=== PATIENT | female | born 1955 | race Caucasian/White ===

== ENCOUNTER 2017-10-03 07:30 | Emergency (ER) | payer MEDICARE, OTHER ==
[~2017-10-03] VITALS: Ht 154.9 cm; Wt 67.4 kg
[2017-10-03] MEDS ORDERED: SODIUM CHLORIDE 0.9% 1,000ML IV ONE (08:00)
[2017-10-03] MEDS ORDERED: DIAZEPAM 5 MG TABLET PO ONE (08:00)
[2017-10-03] MEDS ORDERED: OXYcodone/APAP 5/325MG TABLET PO ONE (08:00)
[2017-10-03] MEDS ORDERED: SODIUM CHLORIDE FLUSH 10ML SYR IVF ONE (08:00)
[2017-10-03] MEDS ORDERED: DIAZEPAM 5 MG TABLET ONE (08:18)
[2017-10-03] MEDS ORDERED: OXYcodone/APAP 5/325MG TABLET ONE (08:18)
[2017-10-03] MEDS ORDERED: ONDANSETRON 2MG/ML, 2ML ONE (08:18)
[2017-10-03] MEDS ORDERED: ASPIRIN 81 MG TABLET CHEW ONE (08:19)
[2017-10-03 08:30] LABS: CULTURE INDICATED? YES; MICROSCOPIC INDICATED
[2017-10-03] MEDS ORDERED: ASPIRIN 81 MG TABLET CHEW PO ONE (08:30)
[2017-10-03] MEDS ORDERED: ONDANSETRON 2MG/ML, 2ML IVPush ONE (08:30)
[2017-10-03 08:54] LABS: BASOPHILS # (AUTO) 0.07 x10^3/uL (0-0.1); BASOPHILS % (AUTO) 1 % (0-1); EOSINOPHILS # (AUTO) 0.06 x10^3/uL (0-0.4); EOSINOPHILS % (AUTO) 0 % (1-7); LYMPHOCYTES % (AUTO) 9 % (22-44); MD NO; MEAN CORPUSCULAR HEMOGLOBIN 24.8 pg (27.0-34.8); MEAN CORPUSCULAR HGB CONC 32.4 g/dL (32.4-35.8); MEAN CORPUSCULAR VOLUME 76.5 fL (80-100); MEAN PLATELET VOLUME 7.5 fL (7.4-10.4); MONOCYTES # (AUTO) 0.96 x10^3/uL (0.2-0.8); MONOCYTES % (AUTO) 7 % (2-9); NEUTROPHILS # (AUTO) 11.05 x10^3/uL (1.8-6.8); NEUTROPHILS % (AUTO) 83 % (42-75); PLATELET COUNT 391 x10^3/uL (130-400); RED BLOOD COUNT 5.91 x10^6/uL (3.82-5.3); RED CELL DISTRIBUTION WIDTH 19.9 % (9.6-15.2)
[2017-10-03 09:05] LABS: ALANINE AMINOTRANSFERASE 20 U/L (12-78); ALBUMIN 3.8 g/dL (3.4-5.0); ANION GAP 7 mmol/L (5-15); CHLORIDE 100 mmol/L (98-107); CREATININE 0.71 mg/dL (0.55-1.02)
[2017-10-03 09:07] LABS: ALKALINE PHOSPHATASE 82 U/L (45-117); BILIRUBIN,TOTAL 0.4 mg/dL (0.2-1.0); TOTAL PROTEIN 8.5 g/dL (6.4-8.2)
[2017-10-03 09:15] LABS: TROPONIN I < 0.015 ng/mL (0.000-0.045)
[2017-10-03] MEDS ORDERED: NS + 40MEQ KCL 1,000 ML IV ONE (09:30)
[2017-10-03] MEDS ORDERED: POTASSIUM CHLORIDE 20 MEQ TAB.ER.PRT ONE (10:19)
[2017-10-03] MEDS ORDERED: POTASSIUM CHLORIDE 20 MEQ TAB.ER.PRT PO ONE (10:30)
[2017-10-03 10:36] VITALS: BP 143/77
== END 2017-10-03 10:40 | disposition left against medical advice (07) ==
LOC: ED 09:41 → UNDOADMIN 09:45 → EDIP 09:45 → ED 10:40
DX: E87.6 Hypokalemia (principal); R06.00 Dyspnea, unspecified; R11.2 Nausea with vomiting, unspecified; F13.239 Sedative, hypnotic or anxiolytic dependence with withdrawal, unspecified; I10 Essential (primary) hypertension; E11.9 Type 2 diabetes mellitus without complications
CPT/HCPCS: 36415; 71046; 72072; 80053; 81001; 83690; 84484; 85025; 87086; 93005; 96361; 96374; 99285; J2405; J7030

== ENCOUNTER 2017-10-25 05:36 | Emergency (ER) | payer MEDICARE ==
[~2017-10-25] VITALS: Ht 149.9 cm; Wt 65.0 kg
[2017-10-25 06:55] LABS: BASOPHILS % (AUTO) 1 % (0-1); EOSINOPHILS # (AUTO) 0.24 x10^3/uL (0-0.4); EOSINOPHILS % (AUTO) 2 % (1-7); LYMPHOCYTES # (AUTO) 1.88 x10^3/uL (1-3.4); LYMPHOCYTES % (AUTO) 16 % (22-44); MD NO; MEAN CORPUSCULAR HEMOGLOBIN 25.1 pg (27.0-34.8); MEAN CORPUSCULAR HGB CONC 32.7 g/dL (32.4-35.8); MEAN CORPUSCULAR VOLUME 76.8 fL (80-100); MONOCYTES # (AUTO) 1.02 x10^3/uL (0.2-0.8); MONOCYTES % (AUTO) 9 % (2-9); NEUTROPHILS # (AUTO) 8.44 x10^3/uL (1.8-6.8); NEUTROPHILS % (AUTO) 72 % (42-75); PLATELET COUNT 453 x10^3/uL (130-400); RED BLOOD COUNT 6.12 x10^6/uL (3.82-5.3); RED CELL DISTRIBUTION WIDTH 18.1 % (9.6-15.2)
[2017-10-25] MEDS ORDERED: SODIUM CHLORIDE FLUSH 10ML SYR IVF ONE (07:00)
[2017-10-25] MEDS ORDERED: DIAZEPAM 5 MG TABLET PO ONE (07:00)
[2017-10-25] MEDS ORDERED: SODIUM CHLORIDE 0.9% 1,000ML IVBOLUS ONE (07:00)
[2017-10-25] MEDS ORDERED: ONDANSETRON 2MG/ML, 2ML IVPush ONE (07:00)
[2017-10-25] MEDS ORDERED: MORPHINE SULFATE 4 MG/ML, 1ML ONE ×2 (07:03→08:04)
[2017-10-25] MEDS ORDERED: DIAZEPAM 5 MG TABLET ONE (07:03)
[2017-10-25] MEDS ORDERED: ONDANSETRON 2MG/ML, 2ML ONE (07:04)
[2017-10-25 07:09] LABS: ALBUMIN 4.2 g/dL (3.4-5.0); ANION GAP 13 mmol/L (5-15); CALCIUM 9.1 mg/dL (8.5-10.1); CHLORIDE 99 mmol/L (98-107)
[2017-10-25 07:14] LABS: ALANINE AMINOTRANSFERASE 19 U/L (12-78); ALKALINE PHOSPHATASE 75 U/L (45-117); BILIRUBIN,TOTAL 0.6 mg/dL (0.2-1.0); CREATININE 0.84 mg/dL (0.55-1.02); TOTAL PROTEIN 8.9 g/dL (6.4-8.2); TROPONIN I 0.025 ng/mL (0.000-0.045)
[2017-10-25] MEDS: MORPHINE SULFATE 4 MG/ML, 1ML IVPush PRN ×2 (07:25→08:07)
[2017-10-25] MEDS ORDERED: OMNIPAQUE 350 MG/ML, 100ML BOTTLE ONE (08:15)
[2017-10-25 09:01] VITALS: BP 178/85
[2017-10-26] MEDS ORDERED: ESTR1.25 PO (11:59)
[2017-10-26] MEDS ORDERED: LOVA40TA2 PO (11:59)
[2017-10-26] MEDS ORDERED: SITA100T PO (11:59)
[2017-10-26] MEDS ORDERED: HYDR25TA6 PO (11:59)
[2017-10-26] MEDS ORDERED: BACL-19 PO (11:59)
[2017-10-26] MEDS ORDERED: METO25TA35 PO (11:59)
[2017-10-26] MEDS ORDERED: LEVO50TA5 PO (11:59)
[2017-10-26] MEDS ORDERED: POTASSIUM PO (11:59)
[2017-10-26] MEDS ORDERED: OMEP40CA6 PO (11:59)
[2017-10-26] MEDS ORDERED: CLON-364 PO (11:59)
[2017-10-26] MEDS ORDERED: SULF500T36 PO (11:59)
[2017-10-26] MEDS ORDERED: MORP15TA3 PO (11:59)
[2017-10-26] MEDS ORDERED: ASPI-496 PO (11:59)
== END 2017-10-25 09:08 | disposition home or self-care (01) ==
LOC: ED 06:12
DX: M54.6 Pain in thoracic spine (principal); M54.5 Low back pain; R20.1 Hypoesthesia of skin
CPT/HCPCS: 36415; 71275; 80053; 83880; 84484; 85025; 93005; 96361; 96374; 96375; 96376; 99285; J2405; J7030; Q9967